=== PATIENT | female | born 1965 | race Caucasian/White ===

== ENCOUNTER 2017-06-17 14:28 | Emergency (ER) | payer OTHER ==
[~2017-06-17] VITALS: Ht 175.3 cm; Wt 82.8 kg
[2017-06-17] MEDS ORDERED: SODIUM CHLORIDE FLUSH 10ML SYR IVF ONE ×2 (15:30→17:00)
[2017-06-17] MEDS ORDERED: ASPIRIN 81 MG TABLET CHEW PO ONE (15:30)
[2017-06-17 16:06] LABS: HEMATOCRIT 43.1 % (34.6-47.8); HEMOGLOBIN 14.5 g/dL (11.7-16.4); WHITE BLOOD COUNT 9.8 x10^3/uL (3.4-10)
[2017-06-17 16:08] LABS: BLOOD UREA NITROGEN 13 mg/dL (7-18)
[2017-06-17 16:16] LABS: ASPARTATE AMINO TRANSFERASE 25 U/L (15-37)
[2017-06-17 16:17] LABS: IS PT STATUS REG ER OR PRE ER? YES
[2017-06-17] MEDS ORDERED: DIPHENHYDRAMINE 50 MG/ML, 1ML IVPush ONE (17:00)
[2017-06-17] MEDS ORDERED: PROCHLORPERAZINE 5 MG/ML, 2ML IVPush ONE (17:00)
[2017-06-17] MEDS ORDERED: SODIUM CHLORIDE 0.9% 1,000ML IVBOLUS ONE (17:00)
[2017-06-17] MEDS ORDERED: PROCHLORPERAZINE 5 MG/ML, 2ML ONE (17:14)
[2017-06-17] MEDS ORDERED: DIPHENHYDRAMINE 50 MG/ML, 1ML ONE (17:14)
[2017-06-17] MEDS ORDERED: ASPIRIN 81 MG TABLET CHEW ONE (17:14)
[2017-06-17] MEDS ORDERED: ADAL20KI SQ (17:34)
[2017-06-17] MEDS ORDERED: METH2.5T PO (17:34)
[2017-06-17 19:45] VITALS: BP 112/64
== END 2017-06-17 19:46 | disposition home or self-care (01) ==
LOC: ED 19:45
DX: M06.9 Rheumatoid arthritis, unspecified (principal)
CPT/HCPCS: 36415; 70450; 70496; 71010; 80053; 84484; 85025; 93005; 96361; 96374; 96375; 99285; J0780; J1200; J7030

== ENCOUNTER → 2017-11-27 | Outpatient (CLI) | payer OTHER ==
[~2017-11-27] MED LIST: ADAL20KI SQ; GADOBUTROL 7.5 MMOL/7.5 ML VIAL ONE; METH2.5T PO
== END | disposition home or self-care (01) ==
LOC: CFH 06:37
PROVIDERS: ATTEND Nurse Practitioner Primary Care
DX: Q28.3 Other malformations of cerebral vessels (principal); R90.82 White matter disease, unspecified
CPT/HCPCS: 70553; A9585

== ENCOUNTER 2019-07-08 12:43 | Outpatient (CLI) | payer OTHER ==
[~2019-07-08 12:43] MED LIST changes: -GADOBUTROL 7.5 MMOL/7.5 ML VIAL ONE
== END 2019-07-08 23:59 | disposition home or self-care (01) ==
LOC: CFH 12:43
PROVIDERS: ATTEND Nurse Practitioner Primary Care
DX: R92.2 Inconclusive mammogram (principal); N64.89 Other specified disorders of breast; N60.01 Solitary cyst of right breast
CPT/HCPCS: 76642; 77065

== ENCOUNTER → 2020-11-14 | Outpatient (CLI) | payer OTHER | END | disposition home or self-care (01) | LOC: CFH 08:20 | PROVIDERS: ATTEND Nurse Practitioner Primary Care | DX: Z12.31 Encounter for screening mammogram for malignant neoplasm of breast (principal) | CPT/HCPCS: 77063; 77067 ==